=== PATIENT | female | born 1970 | race African-American/Black ===

== ENCOUNTER → 2016-05-07 | Outpatient (CLI) | payer BC ==
[~2016-05-07] MED LIST: HYDR25TA; IBUP-1008; albuterol
[2016-05-07 14:28] LABS: BASOPHILS % 0.5 % (0.0-2.0); EOSINOPHILS % 2.6 % (0.0-5.0); HEMATOCRIT. 39.3 % (36.0-48.0); HEMOGLOBIN. 12.9 g/dL (12.0-16.0); LYMPHOCYTES % 31.6 % (20.0-50.0); MEAN CORPUSCULAR HEMOGLOBIN 30.1 pg (28.0-32.0); MEAN CORPUSCULAR HGB CONC 32.8 g/dL (31.0-37.0); MEAN CORPUSCULAR VOLUME 91.6 fL (81.0-99.0); MEAN PLATELET VOLUME 8.4 fl (7.4-10.4); MONOCYTES % 8.4 % (2.0-8.0); NEUTROPHILS % 56.9 % (40.0-76.0); PLATELET 204 x1000/uL (130-400); RED BLOOD CELL COUNT 4.29 mill/uL (4.2-5.4); RED CELL DISTRIBUTION WIDTH 16.4 % (11.6-14.6); WHITE BLOOD COUNT 8.4 x1000/uL (4.5-11.0)
[2016-05-07 15:15] LABS: ALANINE AMINOTRANSFERASE 23 IU/L (13-61); ALBUMIN 3.3 g/dL (3.4-5.0); ANION GAP 11; CALCIUM 8.1 mg/dL (8.5-10.1); CARBON DIOXIDE 27 mEq/L (21-32); CHLORIDE 106 mEq/L (98-107); HDL CHOLESTEROL 61 mg/dL (40-59); INDEX HEMOLYSI 1 (1-3); INDEX ICTERIC 1 (1-4); INDEX LIPEMIC 1 (1-3); LDL CHOLESTEROL 55 mg/dL (5-100); TRIGLYCERIDE 119 mg/dL (0-150); UREA NITROGEN BLOOD 12 mg/dL (7-21); eGFR > 60 mL/min (>60)
[2016-05-08 19:07] LABS: MICROALBUMIN RANDOM URINE 10.6 ug/mL (Not Estab.); MICROALBUMIN/CREATININE RATIO 6.3 mg/g creat (0.0-30.0)
== END | disposition home or self-care (01) ==
LOC: LAB 13:47
PROVIDERS: ATTEND Nurse Practitioner Family
DX: I10 Essential (primary) hypertension (principal); R53.83 Other fatigue
CPT/HCPCS: 36415; 80053; 80061; 82043; 82306; 82570; 83036; 84443; 85025

== ENCOUNTER 2016-06-01 07:55 | Emergency (ER) | payer BC ==
[~2016-06-01] VITALS: Ht 165.1 cm; Wt 120.0 kg
[2016-06-01 08:25] VITALS: BP 129/74
[2016-06-01] MEDS ORDERED: PREDNISONE 20MG TABLET PO STA (09:09)
[2016-06-01] MEDS ORDERED: ALBUTEROL (0.083%) 2.5MG/3ML NEB HHN STA (09:09)
[2016-06-01] MEDS ORDERED: IPRATROPIUM BROMIDE (0.02%) 0.5MG/2.5ML NEB HHN STA (09:09)
[2016-06-01] MEDS ORDERED: ALBUTEROL (0.083%) 2.5MG/3ML NEB HHN NR (09:10)
[2016-06-01] MEDS ORDERED: IPRATROPIUM BROMIDE (0.02%) 0.5MG/2.5ML NEB HHN NR (09:10)
[2016-06-01] MEDS ORDERED: PREDNISONE 20MG TABLET PO NR (09:10)
== END 2016-06-01 10:15 | disposition home or self-care (01) ==
LOC: ER 08:56
DX: J40 Bronchitis, not specified as acute or chronic (principal); F17.200 Nicotine dependence, unspecified, uncomplicated; I10 Essential (primary) hypertension; J45.909 Unspecified asthma, uncomplicated; Z90.49 Acquired absence of other specified parts of digestive tract
CPT/HCPCS: 94640; 99283; J7512; J7611; Z7610

== ENCOUNTER 2017-05-30 10:52 | Emergency (ER) | payer BC, MEDICAID ==
[~2017-05-30] VITALS: Ht 165.1 cm; Wt 113.0 kg
[2017-05-30 11:28] VITALS: BP 158/91
== END 2017-05-30 15:24 | disposition left against medical advice (07) ==
LOC: ER 12:54
DX: H57.12 Ocular pain, left eye (principal); Z53.21 Procedure and treatment not carried out due to patient leaving prior to being seen by health care provider; I10 Essential (primary) hypertension; J45.909 Unspecified asthma, uncomplicated; F17.200 Nicotine dependence, unspecified, uncomplicated

== ENCOUNTER 2017-08-30 14:42 | Emergency (ER) | payer SELFPAY ==
[~2017-08-30] VITALS: Ht 165.1 cm; Wt 93.0 kg
[2017-08-30] MEDS ORDERED: MORPHINE SULFATE 4 MG/ML CPJ (NOT FOR IM USE) IV STA (16:14)
[2017-08-30] MEDS ORDERED: ONDANSETRON HCL 4MG/2ML VIAL IV STA (16:14)
[2017-08-30] MEDS ORDERED: SODIUM CHLORIDE 0.9% 1,000 ML IV ONE (16:14)
[2017-08-30] MEDS ORDERED: DIATR MEGLU/DIATRIZOATE SOLN 30ML ONE (16:33)
[2017-08-30 17:12] LABS: CLARITY URINE CLEAR (CLEAR); COLOR URINE YELLOW (YELLOW); KETONES URINE NEGATIVE (NEGATIVE); LEUKOCYTE ESTERASE URINE NEGATIVE (NEGATIVE); NITRITE URINE NEGATIVE (NEGATIVE); OCCULT BLOOD URINE 2+ (NEGATIVE); PH URINE 5.5 (4.5-8.0); PROTEIN URINE NEGATIVE (NEGATIVE); SPECIFIC GRAVITY URINE 1.017 (1.005-1.030); UROBILINOGEN URINE 0.2 E.U./dL (0.2-1.0)
[2017-08-30] MEDS ORDERED: DIATR MEGLU/DIATRIZOATE SOLN 30ML PO NR ×2 (17:15)
[2017-08-30 17:18] LABS: HCG SCREEN NEGATIVE
[2017-08-30 17:19] LABS: BASOPHILS % 0.6 % (0.0-2.0); EOSINOPHILS % 1.3 % (0.0-5.0); HEMATOCRIT. 42.7 % (36.0-48.0); HEMOGLOBIN. 14.3 g/dL (12.0-16.0); LYMPHOCYTES % 24.5 % (20.0-50.0); MEAN CORPUSCULAR HEMOGLOBIN 31.3 pg (28.0-32.0); MEAN CORPUSCULAR VOLUME 93.5 fL (81.0-99.0); MEAN PLATELET VOLUME 8.7 fl (7.4-10.4); MONOCYTES % 8.2 % (2.0-8.0); NEUTROPHILS % 65.4 % (40.0-76.0); PLATELET 194 x1000/uL (130-400); RED BLOOD CELL COUNT 4.57 mill/uL (4.2-5.4); RED CELL DISTRIBUTION WIDTH 17.5 % (11.6-14.6)
[2017-08-30 17:20] LABS: CHLORIDE 107 mEq/L (98-107)
[2017-08-30 17:21] LABS: PARTIAL THROMBOPLASTIN TIME 24.5 sec (23.4-31.0); PROTHROMBIN TIME 10.7 sec (9.4-11.6)
[2017-08-30] MEDS ORDERED: IOHEXOL-300 100 ML BOTTLE ONE (18:51)
[2017-08-30 20:10] VITALS: BP 146/76
== END 2017-08-30 20:19 | disposition home or self-care (01) ==
LOC: ER 17:12
DX: D25.9 Leiomyoma of uterus, unspecified (principal); I10 Essential (primary) hypertension; J45.909 Unspecified asthma, uncomplicated; F17.200 Nicotine dependence, unspecified, uncomplicated; Z90.49 Acquired absence of other specified parts of digestive tract
CPT/HCPCS: 36415; 74177; 76830; 76856; 80053; 81003; 83690; 84703; 85025; 85610; 85730; 96374; 96375; 99285; J2270; J2405; J7030; Q9967; Q9963

== ENCOUNTER 2017-12-13 13:16 | Emergency (ER) | payer MEDICAID, OTHER ==
[~2017-12-13] VITALS: Ht 165.1 cm; Wt 111.0 kg
[2017-12-13 16:11] VITALS: BP 147/78
== END 2017-12-13 18:41 | disposition home or self-care (01) ==
LOC: ER 13:16
DX: B34.9 Viral infection, unspecified (principal); J02.8 Acute pharyngitis due to other specified organisms; J45.909 Unspecified asthma, uncomplicated; I10 Essential (primary) hypertension; F17.200 Nicotine dependence, unspecified, uncomplicated; Z90.49 Acquired absence of other specified parts of digestive tract; Z79.899 Other long term (current) drug therapy
CPT/HCPCS: 87070; 87430; 99284

== ENCOUNTER 2021-12-18 15:52 | Emergency (ER) | payer MEDICAID, OTHER ==
[~2021-12-18] VITALS: Ht 172.7 cm; Wt 91.0 kg
[2021-12-18 15:54] VITALS: BP 154/90
[2021-12-18] MEDS ORDERED: LIDOCAINE HCL 1% 20ML VIAL (Pyxis) INJ INFIL ONE (16:30)
[2021-12-18] MEDS: LIDOCAINE HCL 1% 10 MG/ML 10ML VIAL IJ SCH (17:11)
[2021-12-18] MEDS ORDERED: TETR-65 PO (17:58)
== END 2021-12-18 18:21 | disposition home or self-care (01) ==
LOC: ER 15:52
DX: L73.2 Hidradenitis suppurativa (principal); I10 Essential (primary) hypertension; J45.909 Unspecified asthma, uncomplicated
CPT/HCPCS: 10060; 99283; J3490; Z7610

== ENCOUNTER 2022-01-15 11:41 | Emergency (ER) | payer OTHER ==
[~2022-01-15] VITALS: Ht 165.1 cm; Wt 81.0 kg
[~2022-01-15 11:41] MED LIST changes: +TETR-65 PO
[2022-01-15 11:54] VITALS: BP 123/67
[2022-01-15] MEDS ORDERED: OLOP2.5D12 EACHEYE (12:27)
== END 2022-01-15 12:51 | disposition home or self-care (01) ==
LOC: ER 11:41
DX: H10.13 Acute atopic conjunctivitis, bilateral (principal); I10 Essential (primary) hypertension; J45.909 Unspecified asthma, uncomplicated
CPT/HCPCS: 99282

== ENCOUNTER 2022-02-08 12:50 | Emergency (ER) | payer OTHER ==
[~2022-02-08] VITALS: Ht 167.6 cm; Wt 105.0 kg
[~2022-02-08 12:50] MED LIST changes: +OLOP2.5D12 EACHEYE
[2022-02-08 13:21] VITALS: BP 170/68
[2022-02-08] MEDS ORDERED: PREDNISONE 20MG TABLET PO ONE (14:15)
[2022-02-08] MEDS ORDERED: ALBUTEROL (0.083%) 2.5MG/3ML NEB HHN ONE (14:15)
[2022-02-08] MEDS ORDERED: P20 MT (14:45)
[2022-02-08] MEDS ORDERED: IBUP-2029 MT (15:07)
== END 2022-02-08 15:08 | disposition home or self-care (01) ==
LOC: ER 12:57
DX: J45.901 Unspecified asthma with (acute) exacerbation (principal); I10 Essential (primary) hypertension; Z90.49 Acquired absence of other specified parts of digestive tract; Z79.899 Other long term (current) drug therapy
CPT/HCPCS: 73610; 81025; 94640; 99283; J7512; Z7610

== ENCOUNTER 2022-07-01 09:12 | Emergency (ER) | payer BC, OTHER ==
[~2022-07-01] VITALS: Ht 165.1 cm; Wt 105.0 kg
[~2022-07-01 09:12] MED LIST changes: +IBUP-2029 MT; +P20 MT
[2022-07-01] MEDS ORDERED: CETIRIZINE 10MG TABLET PO SCH (10:00)
[2022-07-01] MEDS ORDERED: FLUCONAZOLE 100MG TABLET PO ONE (10:00)
[2022-07-01] MEDS ORDERED: FLUCONAZOLE 150MG TABLET PO NR (10:00)
[2022-07-01 10:19] LABS: CLARITY URINE CLOUDY (CLEAR); COLOR URINE DARK YELLOW (YELLOW); KETONES URINE TRACE (NEGATIVE); LEUKOCYTE ESTERASE URINE 2+ (NEGATIVE); NITRITE URINE NEGATIVE (NEGATIVE); OCCULT BLOOD URINE 2+ (NEGATIVE); PROTEIN URINE 1+ (NEGATIVE); SPECIFIC GRAVITY URINE 1.029 (1.005-1.030)
[2022-07-01] MEDS ORDERED: DIF15 MT (10:48)
[2022-07-01] MEDS ORDERED: NITR-87 MT (10:48)
[2022-07-01] MEDS ORDERED: CETI10TA11 MT (10:48)
[2022-07-01 11:00] VITALS: BP 128/78
== END 2022-07-01 11:02 | disposition home or self-care (01) ==
LOC: ER 09:21
DX: N39.0 Urinary tract infection, site not specified (principal); N89.8 Other specified noninflammatory disorders of vagina; J45.909 Unspecified asthma, uncomplicated; I10 Essential (primary) hypertension; Z90.89 Acquired absence of other organs
CPT/HCPCS: 81003; 81025; 99283

== ENCOUNTER 2022-07-05 09:33 | Emergency (ER) | payer BC, OTHER ==
[~2022-07-05] VITALS: Ht 167.6 cm; Wt 113.0 kg
[~2022-07-05 09:33] MED LIST changes: +CETI10TA11 MT; +DIF15 MT; +NITR-87 MT
[2022-07-05 09:42] VITALS: BP 147/90
[2022-07-05] MEDS ORDERED: AMOX1TAB16 MT (10:00)
[2022-07-05] MEDS ORDERED: PSEU-207 MT (10:00)
== END 2022-07-05 10:53 | disposition home or self-care (01) ==
LOC: ER 09:33
DX: J32.9 Chronic sinusitis, unspecified (principal); J30.9 Allergic rhinitis, unspecified; I10 Essential (primary) hypertension; Z20.822 Contact with and (suspected) exposure to COVID-19
CPT/HCPCS: 87426; 99283; C9803

== ENCOUNTER → 2022-11-02 | Outpatient (CLI) | payer BC, OTHER ==
[~2022-11-02] MED LIST changes: +AMOX1TAB16 MT; +PSEU-207 MT
[2022-11-02 12:56] LABS: BASOPHILS % 0.5 % (0.0-2.0); EOSINOPHILS % 2.7 % (0.0-5.0); HEMATOCRIT. 45.7 % (36.0-48.0); HEMOGLOBIN. 15.1 g/dL (12.0-16.0); LYMPHOCYTES % 33.7 % (20.0-50.0); MEAN CORPUSCULAR HEMOGLOBIN 30.7 pg (28.0-32.0); MEAN CORPUSCULAR HGB CONC 33.1 g/dL (31.0-37.0); MEAN CORPUSCULAR VOLUME 92.9 fL (81.0-99.0); MEAN PLATELET VOLUME 8.3 fl (7.4-10.4); MONOCYTES % 7.5 % (2.0-8.0); NEUTROPHILS % 55.6 % (40.0-76.0); PLATELET 193 x1000/uL (130-400); RED BLOOD CELL COUNT 4.92 mill/uL (4.2-5.4); RED CELL DISTRIBUTION WIDTH 17.5 % (11.6-14.6); WHITE BLOOD COUNT 6.8 x1000/uL (4.5-11.0)
[2022-11-02 15:08] LABS: CHLORIDE 112 mEq/L (98-107); INDEX HEMOLYSI 1 (1-3); INDEX ICTERIC 1 (1-4); INDEX LIPEMIC 1 (1-3); SODIUM 140 mEq/L (136-145)
[2022-11-02 15:19] LABS: ALANINE AMINOTRANSFERASE 26 IU/L (13-61); ALBUMIN 3.5 g/dL (3.4-5.0); ASPARTATE AMINOTRANSFERASE 18 IU/L (15-37); BILIRUBIN TOTAL 0.4 mg/dL (0.1-1.0); CALCIUM 8.7 mg/dL (8.5-10.1); CARBON DIOXIDE 27 mEq/L (21-32); CHOLESTEROL 180 mg/dL (<200); CREATININE 0.8 mg/dL (0.6-1.3); GLUCOSE 96 mg/dL (70-105); HDL CHOLESTEROL 62 mg/dL (40-59); LDL CHOLESTEROL 82 mg/dL (5-100); PROTEIN TOTAL 7.2 g/dL (6.0-8.3); TRIGLYCERIDE 135 mg/dL (0-150); UREA NITROGEN BLOOD 9 mg/dL (7-21)
== END | disposition home or self-care (01) ==
LOC: LAB 12:23
PROVIDERS: ATTEND Nurse Practitioner Family
DX: Z00.00 Encounter for general adult medical examination without abnormal findings (principal); I10 Essential (primary) hypertension; E66.01 Morbid (severe) obesity due to excess calories; M17.0 Bilateral primary osteoarthritis of knee; M25.761 Osteophyte, right knee
CPT/HCPCS: 36415; 73560; 80053; 80061; 83036; 85025